=== PATIENT | female | born 1940 | race Asian ===

== ENCOUNTER 2016-12-10 15:37 | Emergency (ER) | payer OTHER ==
[~2016-12-10 15:37] MED LIST: CINNAMON500 MG; DULERA1 AR2; KCL20L PO; LANTUS SOLOS100 U/M1; LEVOFLOXACIN500 M1; LOPERAMIDE1 MG/5 ML; METFORMIN ER500 M1; MEV20; NOR10T; NOVI; PHENAZOPYRIDIN200 M3; PRO30; PYR100I; VERAMYST27.5 MCG/1; [UNRECOGNIZED DRUG - OTHER]
[2016-12-10 16:47] LABS: PLATELET COUNT 307 x10^3mcL (130-400)
[2016-12-10 16:49] LABS: RED CELL DISTRIBUTION WIDTH 14.7 % (11.5-14.5)
[2016-12-10 16:57] LABS: CALCIUM 8.8 mg/dL (8.5-10.1); CARBON DIOXIDE 28.3 mmol/L (21-32); CHLORIDE SERUM 94 mmol/L (98-107); CREATININE SERUM 0.8 mg/dL (0.6-1.0); GLUCOSE SERUM 161 mg/dL (74-106); POTASSIUM SERUM 3.3 mmol/L (3.5-5.1); SODIUM SERUM 133 mmol/L (136-145)
[2016-12-10 17:26] LABS: ALBUMIN 3.5 g/dL (3.4-5.0); ALKALINE PHOSPHATASE 51 U/L (46-116); ALT/SGPT 17 U/L (14-59); AMYLASE 76 U/L (25-115); AST/SGOT 10 U/L (15-37); BILIRUBIN TOTAL 0.26 mg/dL (0.20-1.00); LIPASE 175 IU/L (73-393); T4(THYROXINE) 9.5 ug/dL (4.7-13.3); TOTAL PROTEIN, SERUM 7.2 g/dL (6.4-8.2)
[2016-12-10 17:27] LABS: BAND NEUTROPHIL 2 % (0-10); BASOPHIL 0 % (0-2); MONOCYTE 8 % (0-7); PLATELET MORPHOLOGY PLATELETS NORMAL; SEGMENTED NEUTROPHILS 28 % (37-75); rbc morphology (normal/abnorm) NORMAL (NORMAL)
[2016-12-10 17:32] LABS: CHOLESTEROL 255 mg/dL (<200); HDL CHOLESTEROL 66 mg/dL (40-60)
[2016-12-10 18:42] VITALS: BP 130/51
== END 2016-12-10 18:42 | disposition home or self-care (01) ==
LOC: ED 15:37
PROVIDERS: Emergency Medicine
DX: J44.9 Chronic obstructive pulmonary disease, unspecified (principal); E87.8 Other disorders of electrolyte and fluid balance, not elsewhere classified; E11.9 Type 2 diabetes mellitus without complications; I10 Essential (primary) hypertension; E78.00 Pure hypercholesterolemia, unspecified
CPT/HCPCS: 36600; 82962; 83880; 94150; J2930; J7613; J7644

== ENCOUNTER 2017-03-02 15:32 | Inpatient (IN) | payer OTHER ==
[~2017-03-02] VITALS: Ht 152.4 cm; Wt 58.6 kg
[2017-03-02 16:26] LABS: CALCIUM 8.9 mg/dL (8.5-10.1); CARBON DIOXIDE 25.3 mmol/L (21-32); CHLORIDE SERUM 88 mmol/L (98-107); CREATININE SERUM 1.3 mg/dL (0.6-1.0); GLUCOSE SERUM 379 mg/dL (74-106); POTASSIUM SERUM 3.4 mmol/L (3.5-5.1); SODIUM SERUM 125 mmol/L (136-145)
[2017-03-02 16:27] LABS: BASOPHIL % 0.3 % (0-2); PLATELET COUNT 338 x10^3mcL (130-400); RED CELL DISTRIBUTION WIDTH 13.7 % (11.5-14.5)
[2017-03-02 16:38] LABS: ALBUMIN 3.6 g/dL (3.4-5.0); ALKALINE PHOSPHATASE 56 U/L (46-116); ALT/SGPT 20 U/L (14-59); AMYLASE 50 U/L (25-115); AST/SGOT 13 U/L (15-37); BILIRUBIN TOTAL 0.37 mg/dL (0.20-1.00); LIPASE 85 IU/L (73-393); T4(THYROXINE) 10.8 ug/dL (4.7-13.3); TOTAL PROTEIN, SERUM 7.7 g/dL (6.4-8.2)
[2017-03-02 16:39] LABS: CHOLESTEROL 255 mg/dL (<200); HDL CHOLESTEROL 66 mg/dL (40-60)
[2017-03-02 17:14] LABS: CK-MB < 0.5 ng/mL (0-3.6); CREATINE KINASE 47 U/L (26-192)
[2017-03-02] MEDS ORDERED: PREDNISONE1 MG PO (17:26)
[2017-03-02] MEDS ORDERED: VERAMYST27.5 MCG/1 (17:29)
[2017-03-02] MEDS ORDERED: LANTUS SOLOS100 U/M1 SQ (17:30)
[2017-03-02] MEDS ORDERED: LOVASTATIN40 MG PO (17:30)
[2017-03-02] MEDS ORDERED: METFORMIN HCL850 MG PO (17:30)
[2017-03-02] MEDS ORDERED: NOVI SQ (17:30)
[2017-03-02] MEDS ORDERED: NIFEDICAL XL30 MG PO (17:31)
[2017-03-02] MEDS ORDERED: L-THYROXINE (17:32)
[2017-03-02] MEDS ORDERED: DULERA1 AR3 INH (17:32)
[2017-03-02] MEDS ORDERED: MASON NATURAL1000 IU (17:33)
[2017-03-02] MEDS ORDERED: APAP/HYDROCODON1 T11 PO (17:33)
[2017-03-02] MEDS ORDERED: VITAMIN E400 UNI2 PO (17:33)
[2017-03-02] MEDS ORDERED: THE MEDICINE S300 MG PO (17:34)
[2017-03-02] MEDS ORDERED: NATURAL VITAM1000 MG PO (17:34)
[2017-03-02] MEDS ORDERED: PYR50 PO (17:34)
[2017-03-02] MEDS ORDERED: AZITHROMYCIN250 M1 PO (17:34)
[2017-03-02 17:55] LABS: microscopic required? NO
[2017-03-02 18:01] LABS: UA SPECIFIC GRAVITY <=1.005 (1.005-1.035); urine erythrocyte NEGATIVE (NEGATIVE)
[2017-03-02 18:13] VITALS: BP 147/87
[2017-03-02] MEDS ORDERED: IBUPROFEN200 MG PO (18:15)
[2017-03-02 19:15] VITALS: BP 170/69
[2017-03-02 20:00] VITALS: BP 150/57
[2017-03-02 21:49] VITALS: BP 150/57
[2017-03-03 02:25] VITALS: BP 155/71
[2017-03-03 05:38] VITALS: BP 144/60
[2017-03-03 07:03] LABS: CALCIUM 8.8 mg/dL (8.5-10.1); CARBON DIOXIDE 24.5 mmol/L (21-32); CHLORIDE SERUM 99 mmol/L (98-107); CREATININE SERUM 0.8 mg/dL (0.6-1.0); GLUCOSE SERUM 184 mg/dL (74-106); POTASSIUM SERUM 3.2 mmol/L (3.5-5.1); SODIUM SERUM 137 mmol/L (136-145)
[2017-03-03 07:04] LABS: BASOPHIL % 0.2 % (0-2); PLATELET COUNT 309 x10^3mcL (130-400); RED CELL DISTRIBUTION WIDTH 13.9 % (11.5-14.5)
[2017-03-03 09:27] VITALS: BP 112/62; BP 146/56
[2017-03-03 13:21] VITALS: BP 145/57
[2017-03-03 16:47] VITALS: BP 113/35
[2017-03-03 22:01] VITALS: BP 130/40
[2017-03-04 05:16] VITALS: BP 134/59
[2017-03-04 06:59] LABS: BASOPHIL % 0.2 % (0-2); PLATELET COUNT 308 x10^3mcL (130-400); RED CELL DISTRIBUTION WIDTH 14.2 % (11.5-14.5)
[2017-03-04 07:15] LABS: CALCIUM 8.7 mg/dL (8.5-10.1); CARBON DIOXIDE 26.5 mmol/L (21-32); CHLORIDE SERUM 100 mmol/L (98-107); CREATININE SERUM 0.8 mg/dL (0.6-1.0); GLUCOSE SERUM 226 mg/dL (74-106); MAGNESIUM 1.6 mg/dL (1.8-2.4); POTASSIUM SERUM 3.8 mmol/L (3.5-5.1); SODIUM SERUM 135 mmol/L (136-145)
[2017-03-04 10:25] VITALS: BP 142/53
[2017-03-04 11:54] VITALS: BP 142/53
[2017-03-04] MEDS ORDERED: PREDNISONE1 MG PO (12:04)
== END 2017-03-04 13:00 | disposition home or self-care (01) | DRG 190 ==
LOC: ED 15:32 → DU 17:16
PROVIDERS: Emergency Medicine; ADMIT Family Medicine
DX: J44.1 Chronic obstructive pulmonary disease with (acute) exacerbation (principal); N17.0 Acute kidney failure with tubular necrosis; J96.00 Acute respiratory failure, unspecified whether with hypoxia or hypercapnia; E87.1 Hypo-osmolality and hyponatremia; D68.69 Other thrombophilia; E87.6 Hypokalemia; E11.51 Type 2 diabetes mellitus with diabetic peripheral angiopathy without gangrene; E11.65 Type 2 diabetes mellitus with hyperglycemia; E11.42 Type 2 diabetes mellitus with diabetic polyneuropathy; E03.9 Hypothyroidism, unspecified; E86.0 Dehydration; H40.9 Unspecified glaucoma; E78.5 Hyperlipidemia, unspecified; D72.829 Elevated white blood cell count, unspecified; T38.0X5A Adverse effect of glucocorticoids and synthetic analogues, initial encounter; Z68.25 Body mass index [BMI] 25.0-25.9, adult; Z79.4 Long term (current) use of insulin; Z79.84 Long term (current) use of oral hypoglycemic drugs
CPT/HCPCS: 36600; 82962; 83880; 94150; J1815; J1885; J1956; J2920; J2930; J3475; J7030; J7512; J7613; Q0092

== ENCOUNTER 2018-09-01 20:56 | Inpatient (IN) | payer OTHER ==
[~2018-09-01] VITALS: Ht 152.4 cm; Wt 68.7 kg
[~2018-09-01 20:56] MED LIST changes: +APAP/HYDROCODON1 T11 PO; +AZITHROMYCIN250 M1 PO; +DULERA1 AR3 INH; +IBUPROFEN200 MG PO; +L-THYROXINE; +LANTUS SOLOS100 U/M1 SQ; +LOVASTATIN40 MG PO; +MASON NATURAL1000 IU; -METFORMIN ER500 M1; +METFORMIN HCL850 MG PO; +NATURAL VITAM1000 MG PO; +NIFEDICAL XL30 MG PO; +NOVI SQ; +PREDNISONE1 MG PO; +PYR50 PO; +THE MEDICINE S300 MG PO; +VITAMIN E400 UNI2 PO
[2018-09-01 21:08] VITALS: Ht 152.4 cm; Wt 68.7 kg
--- NOTE | 2018-09-01 21:28 | NUR ---
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 PT GIVEN BREATHING TX X1 EN ROUTE WITH IMPROVEMENT. PT ABLE TO SPEAK CLEARLY. STS NO PAIN AT THIS TIME. PT AAO4, NO DISTRESS. MSE BY DR QUICK.
[2018-09-01 21:37] LABS: BASOPHIL % 1.4 % (0-2); PLATELET COUNT 296 x10^3mcL (130-400)
[2018-09-01 21:45] LABS: CHLORIDE SERUM 99 mmol/L (98-107); CREATININE SERUM 0.9 mg/dL (0.6-1.0); GLUCOSE SERUM 173 mg/dL (74-106); POTASSIUM SERUM 3.3 mmol/L (3.5-5.1); SODIUM SERUM 136 mmol/L (136-145)
[2018-09-01 21:50] LABS: ALBUMIN 3.7 g/dL (3.4-5.0); ALKALINE PHOSPHATASE 30 U/L (46-116); ALT/SGPT 24 U/L (14-59); AST/SGOT 19 U/L (15-37); BILIRUBIN TOTAL 0.21 mg/dL (0.20-1.00); TOTAL PROTEIN, SERUM 7.2 g/dL (6.4-8.2)
[2018-09-01 21:53] LABS: microscopic required? NO
[2018-09-01 22:02] LABS: CK-MB 0.7 ng/mL (0-3.6)
[2018-09-01 22:06] LABS: urine erythrocyte NEGATIVE (NEGATIVE)
--- NOTE | 2018-09-01 22:22 | NUR ---
PT IN [place] IN POSITION OF COMFORT, RESP E/U, NO DISTRESS.
--- NOTE | 2018-09-01 23:02 | NUR ---
MD AT BEDSIDE TO SPEAK WITH PT ABOUT POC. PT AAO4, RESP E/U, STS NO PAIN AT THIS TIME.
--- NOTE | 2018-09-01 23:22 | NUR ---
REPORT GIVEN TO LUIS F YOO TO ASSUME CARE.
[2018-09-02] VITALS (7 sets, daily range): BP systolic 107–146; BP diastolic 39–57
[2018-09-02 00:10] LABS: CHOLESTEROL 192 mg/dL (<200); MAGNESIUM 1.5 mg/dL (1.8-2.4); PHOSPHOROUS 3.3 mg/dL (2.5-4.9)
[2018-09-02 00:15] LABS: CHOLESTEROL/HDL RATIO 2.2; HDL CHOLESTEROL 89 mg/dL (40-60); TRIGLYCERIDES 429 mg/dL (<150)
[2018-09-02 00:26] LABS: FREE T4 0.92 ng/dL (0.76-1.46); FREE THYROXINE INDEX 3.1 ug/dL (1.4-4.5); T4(THYROXINE) 9.1 ug/dL (4.7-13.3)
--- NOTE | 2018-09-02 00:32 | NUR ---
RECEIVED PT FROM ED VIA PITER. ORIENTED PT TO ROOM AND SURROUNDINGS. IV NOTED TO LAC PATENT AND INTACT. TELE 24 PLACED ON PT READING NSR. INSTRUCTED PT ON THE USE OF CALL LIGHT FOR ASSISTANCE. ENDORSED PT TO PRIMARY NURSE NAILA
[2018-09-02 00:50] LABS: T3 TOTAL 1.25 ng/mL
--- NOTE | 2018-09-02 01:13 | NUR ---
RECEIVED PT FROM ED, ACCOMPANIED BY ER NURSE AND PT,S SON. KEPT COMFORTABLE IN BED. A/O X4. ABLE TO VERBALIZE NEEDS. ADMITTED WITH COMPLAINTS OF SOB. PT ON ROOM AIR, SAT. 95% LUNG SOUNDS WITH EXP. WHEEZES, DENIES SOB AT THIS TIME. RESP. EVEN AND UNLABORED. NO ACUTE DISTRESS NOTED. AFEBRILE AND VITAL SIGNS STABLE. PLACED ON TELE #24, SR ON THE MONITOR. DENIES CHEST PAIN OR PRESSURE. IVF,NS AND LEVAQUIN, STARTED IN ER, STILL INFUSING. IV SITE TO LAC.ABD. SOFT, NON DISTENDED, BS ACTIVE. NO N/V NOTED. SKIN WARM AND DRY TO TOUCH.BRUISED AREA TO RT HAND NOTED. PICTURE TAKEN AND DOCUMENTED. ORIENTED TO ROOM AND SURROUNDINGS. BED IN LOW POSITION. CALL LIGHT WITHIN REACH. WILL CONTINUE TO MONITOR.
[2018-09-02] MEDS ORDERED: LEVOTHYROXINE0.05 M2 PO (01:52)
[2018-09-02] MEDS ORDERED: CHLORTHALIDONE50 MG PO (01:52)
[2018-09-02] MEDS ORDERED: NOR10T PO (01:52)
[2018-09-02] MEDS ORDERED: PRINIVIL10 MG PO (01:53)
--- NOTE | 2018-09-02 03:00 | NUR ---
LACTIC ACID RESULT 5.3, DR ELLIOTT MADE AWARE. WILL CONTINUE TO MONITOR.
--- NOTE | 2018-09-02 03:32 | NUR ---
COMPLAINED OF PAIN TO BLE, 11/16, MEDICATED WITH NORCO PO ORDERED. WILL CONTINUE TO MONITOR.
--- NOTE | 2018-09-02 04:17 | NUR ---
EYES CLOSED, APPEARS ASLEEP, EASILY AROUSABLE. NO DISTRESS NOTED. WILL CONTINUE TO MONTOR.
--- NOTE | 2018-09-02 06:07 | NUR ---
DUE MEDS GIVEN ORDERED, KRIS. WELL. DUE MEDS GIVEN ORDERED, KRIS . WELL. AMBULATES WITH ASSIST. VOIDING FREELY. AFEBRILE AND VITAL SIGNS STABLE. RESP. EVEN AND UNLABORED. DENIES SOB. NO ACUTE DISTRESS NOTED. WILL CONTINUE TO MONITOR.
[2018-09-02 06:47] LABS: CALCIUM 8.2 mg/dL (8.5-10.1); CARBON DIOXIDE 18.4 mmol/L (21-32); CHLORIDE SERUM 100 mmol/L (98-107); CREATININE SERUM 1.3 mg/dL (0.6-1.0); GLUCOSE SERUM 309 mg/dL (74-106); MAGNESIUM 1.3 mg/dL (1.8-2.4); POTASSIUM SERUM 4.9 mmol/L (3.5-5.1); SODIUM SERUM 137 mmol/L (136-145)
[2018-09-02 06:54] LABS: PLATELET COUNT 271 x10^3mcL (130-400)
[2018-09-02 07:06] LABS: BASOPHIL % 0 % (0-2); RED CELL DISTRIBUTION WIDTH 15.1 % (11.5-14.5)
--- NOTE | 2018-09-02 08:00 | NUR ---
RC'D PT RESTING IN BED WITH NO APPARENT SIGNS OF DISTRESS. A/A/O/X4, SPEECH CLEAR AND APPRORPIATE. DENIES DAMON/DIZZINES. ON TELE, DENIES CHEST PAIN/PRESSURE. PALP PULSES. RESPIRATIONS EQUAL AND UNLABORED. LUNGS CTA AT THSI TIME. ON RA, DENIES SOB. ABDOMEN SOFT AND NONTENDER. ACTIVE BS. DENIES N/V. VOIDS FREELY. AMBULATORY WITH ASSIST. DRESSING TO RIGHT HAND, CDI. PT DENIES PAIN AT THIS TIME. IV PATENT AND INTACT. BED IN LOW PSOITION. CALL LIGHT IN REACH. WILL CONTINUE TO MONITOR
--- NOTE | 2018-09-02 08:48 | NUR ---
AM MEDICATIONS GIVEN. PT TOLERATED WELL. RESPIRATIONS EQUAL AND UNLABORED. ON ,RA DENIES SOB. PT DENIES PAIN AT THIS TIME. BED IN LOW POSITION. CALL LIGHT IN REACH. WILL CONTINUE TO MNONITR
--- NOTE | 2018-09-02 17:18 | NUR ---
PT RESTING IN BED WITH NO APPARENT SIGNS OF DISTRESS. DENIES CHEST PAIN/PRESSURE. RESPIRATIONS EQUAL AND UNLABORED. ON RA, DENIES SOB. PT AMBULATORY WITH ASSIST. NO ACUTE SKIN CHANGES NOTED. PT DENIES PAIN AT THIS TIME. IV PATENT AND INTACT. BED IN LOW POSIOTION. CALL LIGHT IN REACH. WILL ENDORSE TO GARMENT CUTTER RN
--- NOTE | 2018-09-02 19:54 | NUR ---
RECEIVED AMBULATING TO THE TOILET FOR [place] PERSONAL NEEDS. SKIN WARM AND DRT TO TOUCHM WITH INTERMTTENT CONFUSION, LUNG SOUNDS UPON AUSCULTATION. DENIES ANY CHEST PAIN/DISCOMFIORT. PLACED CALL LIGHT WIHTI , HEPARIN IR STAT
--- NOTE | 2018-09-02 22:56 | NUR ---
C/O MODERATE PAIN AT THE BLE. ON SCALE 6/10. NORCO 10/325MG PO PRN MEDICATION. ORAL FLUIDS TOLERATED. WELL. CALL LIGHT WITHIN REACH.
--- NOTE | 2018-09-03 00:01 | NUR ---
EYES CLOSED. NO FACIAL GRIMACING NOTED. RESPIRATION EVEN AND UNLABORED. PAIN LEVEL 0/10, APPARENTLT PT ASLEEP SOUNDLY. BED IN LOWEST POSITION.
[2018-09-03 05:24] VITALS: BP 111/47
[2018-09-03 06:40] LABS: PLATELET COUNT 247 x10^3mcL (130-400)
[2018-09-03 06:45] LABS: CALCIUM 8.3 mg/dL (8.5-10.1); CARBON DIOXIDE 22.5 mmol/L (21-32); CHLORIDE SERUM 97 mmol/L (98-107); GLUCOSE SERUM 202 mg/dL (74-106); POTASSIUM SERUM 3.8 mmol/L (3.5-5.1); SODIUM SERUM 133 mmol/L (136-145)
--- NOTE | 2018-09-03 06:48 | NUR ---
BLOOD SUGAR TAKEN 199MG/DL, 3UNITS HRI GIVEN SQ. ALL DUE MEDICATIONS GIVEN TOLERATING WELL. NO S/S OF GLYCEMIC REACTION. ALL NEEDS ATTENDED. KEPT CLEAN AND DRY.
--- NOTE | 2018-09-03 07:55 | NUR ---
AT 0715 - RECEIVED PATIENT FROM NIGHT NURSE. AWAKE, ALERT AND ORIENTED. RESPIRATIONS REGULAR. ON ROOM AIR. NO SOB NOTED. IV SALINE LOCKED.
[2018-09-03 09:01] VITALS: BP 112/43
--- NOTE | 2018-09-03 10:25 | NUR ---
SEEN BY DR REES. PLAN TO DC HOME TODAY. PATIENT VERBALZIED AGREEMENT.
--- NOTE | 2018-09-03 10:33 | NUR ---
AT 1027 - RECEIVED CALL FROM LAB WITH LACTIC ACID OF 3.9. REPORTED TO DR REES AND DR CASTANEDA. NO ADDITIONAL TREATMENT REQUIRED THIS IS A DOWNWARD TREND.
[2018-09-03 12:02] LABS: RED CELL DISTRIBUTION WIDTH 15.4 % (11.5-14.5)
[2018-09-03 12:24] VITALS: BP 112/43
[2018-09-03] MEDS ORDERED: METFORMIN ER500 M1 PO (12:24)
--- NOTE | 2018-09-03 12:59 | NUR ---
AT 1204 - RECEIVED CALL FROM LAB WITH ELEVATED WBC PER SEPSIS PROTOCOL. SPOKE WITH DR CASTANEDA. SHE WILL CALL LAB. PATIENT MAY STIL BE DISCHARGED HOME. AT 1230 - PATIENT DOES NOT WANT TO EAT LUNCH BUT WANTS TO BE DISCHARGED HOME NOW. AT 1240 - PRINTED DISCHARGE INSTRUCTIONS GIVEN AND EXPLAINED TO PATIENT. IV CATHETER REMOVED INTACT. AT 1255 - DISCHARGED HOME WITH . TAKEN TO CAR IN WHEELCHAIR BY JENNA.
[2018-09-03 14:42] LABS: ATYPICAL LYMPH 1 %; BAND NEUTROPHIL 0 % (0-10); BASOPHIL 0 % (0-2); MONOCYTE 2 % (0-7); SEGMENTED NEUTROPHILS 87 % (37-75); rbc morphology (normal/abnorm) ABNORMAL (NORMAL)
[2018-09-03 14:43] LABS: PLATELET MORPHOLOGY PLATELETS NORMAL
== END 2018-09-03 12:57 | disposition home or self-care (01) | DRG 202 ==
LOC: ED 20:56 → DU 23:07 → MU 09-02 17:42
PROVIDERS: Emergency Medicine; ADMIT General Practice
DX: J45.901 Unspecified asthma with (acute) exacerbation (principal); E87.2 Acidosis; E11.65 Type 2 diabetes mellitus with hyperglycemia; E78.5 Hyperlipidemia, unspecified; E87.6 Hypokalemia; E83.42 Hypomagnesemia; E03.9 Hypothyroidism, unspecified; H40.9 Unspecified glaucoma; D72.829 Elevated white blood cell count, unspecified; Z68.24 Body mass index [BMI] 24.0-24.9, adult; Z79.52 Long term (current) use of systemic steroids; Z79.84 Long term (current) use of oral hypoglycemic drugs
CPT/HCPCS: 82962; 84439; J1644; J1815; J1956; J2920; J2930; J7030; J7620; J7626; Q0092

== ENCOUNTER 2018-09-19 11:54 | Inpatient (IN) | payer OTHER ==
[~2018-09-19] VITALS: Ht 152.4 cm; Wt 59.4 kg
[~2018-09-19 11:54] MED LIST changes: +CHLORTHALIDONE50 MG PO; +LEVOTHYROXINE0.05 M2 PO; +METFORMIN ER500 M1 PO; +NOR10T PO; +PRINIVIL10 MG PO
[2018-09-19 12:00] VITALS: Ht 152.4 cm; Wt 59.4 kg
--- NOTE | 2018-09-19 12:12 | NUR ---
DR. KIMBLE AT BEDSIDE FOR MSE.
--- NOTE | 2018-09-19 12:15 | NUR ---
PT BROUGHT TO ED BY SON C/O WORSENING SOB X5 DAYS POST COMPLETING CYCLE OF ANTIBIOTICS. PER SON PT WAS DISCHARGED [place] [facility] [place] [facility] AND STARTED ON GLIPIZIDE IN PLACE OF METFORMIN. PT A/O X4, RESPS SLIGHTLY RAPID, WHEEZING NOTED THROUGHOUT LUNG BUSTILLOS, SKIN INTACT, WARM/DRY TO TOUCH. RT CALLED FOR TX.
--- NOTE | 2018-09-19 12:23 | NUR ---
RT AT BEDSIDE ADMINISTERING BREATHING TX.
[2018-09-19 12:30] LABS: BASOPHIL % 0.4 % (0-2); PLATELET COUNT 261 x10^3mcL (130-400)
--- NOTE | 2018-09-19 12:31 | NUR ---
PORTABLE CHEST X-RAY IN PROGRESS AT BEDSIDE.
[2018-09-19 12:45] LABS: CALCIUM 9.5 mg/dL (8.5-10.1); CARBON DIOXIDE 24.7 mmol/L (21-32); CHLORIDE SERUM 96 mmol/L (98-107); CREATININE SERUM 1.2 mg/dL (0.6-1.0); GLUCOSE SERUM 415 mg/dL (74-106); POTASSIUM SERUM 3.6 mmol/L (3.5-5.1); SODIUM SERUM 135 mmol/L (136-145)
[2018-09-19 12:50] LABS: ALBUMIN 3.5 g/dL (3.4-5.0); ALKALINE PHOSPHATASE 40 U/L (46-116); ALT/SGPT 22 U/L (14-59); BILIRUBIN TOTAL 0.4 mg/dL (0.20-1.00); TOTAL PROTEIN, SERUM 7.2 g/dL (6.4-8.2)
[2018-09-19 13:00] LABS: AST/SGOT 6 U/L (15-37)
--- NOTE | 2018-09-19 13:16 | NUR ---
PT SITTING UP IN ED BOOM A/O X4, RESPS EVEN AND UNLABORED, ABLE TO SPEAK IN COMLETE SENTENCES, REPORTS FEELING BETTER SINCE ARRIVAL TO ED, NO S/S OF DISTRESS NOTED. SON AT BEDSIDE.
[2018-09-19 13:34] LABS: RED CELL DISTRIBUTION WIDTH 15.1 % (11.5-14.5)
--- NOTE | 2018-09-19 13:43 | NUR ---
REPORT CALLED TO MARLENE KERNS.
[2018-09-19] MEDS ORDERED: CLARITIN LIQUI-10 MG PO (13:46)
[2018-09-19] MEDS ORDERED: SPIRIVA18 MC1 INH (13:46)
[2018-09-19] MEDS ORDERED: GLIPIZIDE2.5 M1 PO (13:46)
[2018-09-19] MEDS ORDERED: PRO2 PO (13:46)
[2018-09-19 14:12] VITALS: BP 144/48
--- NOTE | 2018-09-19 14:15 | NUR ---
RECEIVED PT FROM ED VIA [employer]. ORIENTED PT TO ROOM AND SURROUNDINGS. IV NOTED TO LH PATENT AND INTACT. TELE 32 PLACED ON PT READING NSR. INSTRUCTED PT ON THE USE OF CALL LIGHT FOR ASSISTANCE. WILL CONTINUE TO MONITOR
--- NOTE | 2018-09-19 16:17 | NUR ---
PATIENT WAS MEDICATED WITH NORCO FOR C/O 9/10 PAIN TO LT ARM BY SURU RN, RESUME CARE; PATIENT RESTING IN BED CALM, WITH SON AT BEDSIDE. QUESTIONS ADDRESSED. CALL LIGHT WITHIN REACH.
--- NOTE | 2018-09-19 17:21 | NUR ---
PATIENT REPORT PAIN TO LT ARM IS BETTER AFTER MEDICATED WITH NORCO, 09/16. 21 UNITS REGULAR INSULIN SQ INJECTED TO LT ARM PER PATIENT REQUESTED, BS 482. NEEDS MET. CALL LIGHT WITHIN REACH. IV TO LH REMOVED PER PATIENT REQUEST C/O PAIN TO SITE. NO ERYTHEMA OR SWELLING NOTED. GAUZES APPLIED TO SITE. CONT TO MONITOR.
[2018-09-19 17:35] VITALS: BP 144/48
[2018-09-19 18:27] VITALS: BP 128/47; BP 168/77
--- NOTE | 2018-09-19 19:08 | NUR ---
NEW IV SITE TO #22G WITH GOOD BLOOD RETURN AND FLUSH WELL; SECURED. IVF STARTED AT 50 ML/HR. CARE ENDORSE TO ON-COMING NURSE.
[2018-09-19 19:53] VITALS: BP 122/59
--- NOTE | 2018-09-19 19:57 | NUR ---
PATIENT RECEIVED IN BED AWAKE,ALERT AND ORIENTED X4,SPEECH CLEAR. NO RESP. DISTRESS, FOUND ON RA SAT 97%, STATED MILD SOB ON EXERTION, BS EXPIRATORY WHEEZING UPPER LOBES AND CLEAR DIMINISHED BASES.DENIES CHEST PAINS, VG=[id number], TELE#32 SR. IV SITE NO SIGN OF INFILTRATION. AMBULATORY WITH STEADY GAIT, ABLE TO PARTICIPATED IN ADL'S WITH MIN ASSIST. 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 PATIENT CONCERN AND QUESTIONS ADDRESSED AND ANSWERED. INFORMED ABOUT POC THIS SHIFT. WILL CONTINUE TO MONITOR.
--- NOTE | 2018-09-19 21:42 | NUR ---
SCHEDULED MEDS ADMINISTERED THIS TIME, PATIENT IN SITTING POSITION, PATIENT WA INFORMED ABOUT EACH MEDS ACTIONS AND PURPOSE PRIOR. TOOK PILLS WELL. PATIENT ALSO COMPLAINED O GENERALIZED BODY PAIN, MEDICATED WITH NORCO. PATIENT GIVEN SNACK.
--- NOTE | 2018-09-19 22:34 | NUR ---
CHECKED EFFECTIVENESS OF PAIN MEDS ADMINISTERED EARLIER, PATIENT STATED PAIN AT 2/10 BETTER.
--- NOTE | 2018-09-20 01:00 | NUR ---
PATIENT RESTING QUIETLY AND COMFORTABLY THIS TIME NO RESP. DISTRESS, REMAINED ON RA TOLERATING WELL. NSR ON THE MONITOR. WILL CONTINUE TO MONITOR.
[2018-09-20 06:06] VITALS: BP 124/51
--- NOTE | 2018-09-20 06:35 | NUR ---
PATIENT CLAIMED HAD SLEPT WELL AND RESTED GOOD DURING THE SHIFT. AMBULATORY WITH STEADY GAIT, VOIDED WITHOUT DIFF. NO RESP. DISTRESS ENCOUNTERED, TOLERATED BEING ON ROOM AIR.RECEIVED RELIEF FROM NORCO GIVEN EARLIER FOR GENERALIZED BODY PAIN. SAFETY MAINTAINED. WILL ENDORSE CONTINUITY OF CARE TO INCOMING NURSE.
[2018-09-20 06:40] LABS: BASOPHIL % 0.2 % (0-2); PLATELET COUNT 248 x10^3mcL (130-400)
[2018-09-20 06:42] LABS: RED CELL DISTRIBUTION WIDTH 15.5 % (11.5-14.5)
[2018-09-20 06:48] LABS: CALCIUM 9.2 mg/dL (8.5-10.1); CARBON DIOXIDE 25.5 mmol/L (21-32); CHLORIDE SERUM 97 mmol/L (98-107); GLUCOSE SERUM 291 mg/dL (74-106); POTASSIUM SERUM 3.4 mmol/L (3.5-5.1); SODIUM SERUM 135 mmol/L (136-145)
--- NOTE | 2018-09-20 06:51 | NUR ---
RECEIVED A CALL FROM LAB WITH WBC OF 15.1 WILL RELAY RESULT TO CHARGE NURSE NANCY-LUIS F AND INCOMING NURSE.
--- NOTE | 2018-09-20 07:15 | NUR ---
RECEIVED PATIENT AWAKE/ALERT IN BED, STATED FEEL MUCH BETTER TODAY, DENIES SOB. DENIES PAIN. TELE #32 NOTED. IV TO RH INTACT AND INFUSING WELL. NO ERYTHEMA OR SWELLING NOTED. TRACK AND FIELD COACH NELL SEEN PATIENT AND DISCUSS POC WITH PATIENT, PER TRACK AND FIELD COACH WILL KEEP PATIENT ONE MORE DAY. CALL LIGHT WITHIN REACH.
--- NOTE | 2018-09-20 07:21 | NUR ---
BEDSIDE HANDS OFF REPORT AND INTRODUCTION PERFORMED WITH INCOMING NURSE IVANA-LUIS F.
[2018-09-20 09:08] VITALS: BP 110/46
--- NOTE | 2018-09-20 12:19 | NUR ---
PATIENT RESTING IN BED NO COMPLAIN, DRY COUGH NOTED. ADMINISTERED 18 UNITS REGULAR SQ FOR BS 403, NEEDS ATTENDED. CALL LIGHT WITHIN REACH.
[2018-09-20 12:20] VITALS: BP 104/51
--- NOTE | 2018-09-20 13:27 | NUR ---
PATIENT RESTING IN BED NO C/O PAIN AT THIS TIME, SOLUMEDROL IVP ADMINISTERED TO RH IV PATENT, NO ERYTHEMA OR LEAKING NOTED. RT AT BEDSIDE GIVING PATIENT BREATHING TX. PROVIDE NEW BLANKET PER PATIENT ACCIDENTLY SPILL JUICE ON IT. CALL LIGHT WITHIN REACH.
[2018-09-20 15:30] LABS: CALCIUM 8.8 mg/dL (8.5-10.1); CARBON DIOXIDE 21.1 mmol/L (21-32); CHLORIDE SERUM 98 mmol/L (98-107); CREATININE SERUM 1.3 mg/dL (0.6-1.0); GLUCOSE SERUM 399 mg/dL (74-106); POTASSIUM SERUM 3.2 mmol/L (3.5-5.1); SODIUM SERUM 134 mmol/L (136-145)
[2018-09-20 15:33] LABS: BASOPHIL % 0.1 % (0-2); PLATELET COUNT 237 x10^3mcL (130-400)
[2018-09-20 16:34] VITALS: BP 126/40
--- NOTE | 2018-09-20 17:22 | NUR ---
PATIENT BACK TO ROOM FROM WALKING IN HALLWAY, TOLERATED WELL NO C/O SOB OR WHEEZES. ADMINISTERED REGULAR INSULIN 18 UNITS SQ FOR BS 413 TO RT ABDOMEN. NEEDS MET. CONT TO MONITOR.
--- NOTE | 2018-09-20 18:09 | NUR ---
PATIENT STILL EATING HER DINNER, REPORT DON'T NEED ANYTHING AT THIS TIME. CALL LIGHT WITHIN REACH.
--- NOTE | 2018-09-20 19:30 | NUR ---
PT IN ROOM 209 BED B. PT IS A/O X4, SPEECH IS CLEAR AND FOLLOWS COMMANDS. CHEST RISE AND FALL EQUAL AND UNLABORED. VS STABLE. NO SIGNS OR COMPLAINT OF ACUTE DISTRESSED. CALL LIGHT WITHIN REACH AND BED IN LOWEST POSTION.
--- NOTE | 2018-09-20 19:32 | NUR ---
RECEIVED REPORT FROM LUIS F HEATH. ALL QUESTIONS AND CONCERS ADDRESSED.
[2018-09-20 21:03] VITALS: BP 123/45
--- NOTE | 2018-09-21 00:15 | NUR ---
PT RESTING IN THE TIME IN SUPINE POSITION. NO SIGNS OR COMPLAINTS OF ACUTE DISTRESS.
[2018-09-21 05:31] VITALS: BP 137/55
[2018-09-21 07:10] LABS: PLATELET COUNT 236 x10^3mcL (130-400)
[2018-09-21 07:15] LABS: CALCIUM 8.5 mg/dL (8.5-10.1); CARBON DIOXIDE 24.1 mmol/L (21-32); CHLORIDE SERUM 98 mmol/L (98-107); CREATININE SERUM 0.9 mg/dL (0.6-1.0); GLUCOSE SERUM 317 mg/dL (74-106); POTASSIUM SERUM 3.3 mmol/L (3.5-5.1); SODIUM SERUM 135 mmol/L (136-145)
[2018-09-21 07:26] LABS: BASOPHIL % 0 % (0-2)
--- NOTE | 2018-09-21 07:30 | NUR ---
PATIENT RESTING IN BED. PATIENT DENIES PAIN AT THIS TIME. NO ACUTE DISTRESS NOTED, PATIENT ON ROOM AIR. NO WEAKNESS NOTED. IV INFUSING TO RIGHT HAND AT 50ML/HR, IV SITE CDI, NO S/S OF INFILTRATION. CALL LIGHT WITHIN REACH, BED IN LOW POSITION, WILL CONTINUE TO MONITOR PATIENT.
[2018-09-21 08:34] VITALS: BP 148/45
[2018-09-21] MEDS ORDERED: MEDROL DOSEPAK4 MG PO (10:34)
[2018-09-21 13:03] VITALS: BP 148/45
--- NOTE | 2018-09-21 13:35 | NUR ---
PATIENT WAS DISCHARGE HOME. PATIENT WAS TAKEN DOWN BY SOCIAL PROBLEMS SPECIALIST VIA WHEELCHAIR. TELE MONITOR REMOVED. IV TO RIGHT HAND REMOVED, CATH INTACT. ARMBANDS REMOVED. PATIENT DENIES PAIN. PATIENT RECEIVED COPY OF D/C INSTRUCTIONS AND D/C PRESCRIPTIONS. PATIENT UNDERSTANDS AND AGREES WITH D/C PLAN AND INSTRUCTINS, INCLUDING MEDICATIONS AND FOLLOW UP CARE. ALL QUESTIONS AND CONCERNS ADRESSED. PATIENT TOOK HOME PERSONAL BELONGINGS.
== END 2018-09-21 13:32 | disposition home or self-care (01) | DRG 203 ==
LOC: ED 11:54 → DU 13:10
PROVIDERS: Emergency Medicine; Internal Medicine; ADMIT Family Medicine
DX: J45.901 Unspecified asthma with (acute) exacerbation (principal); R06.03 Acute respiratory distress; E11.65 Type 2 diabetes mellitus with hyperglycemia; I45.81 Long QT syndrome; E03.9 Hypothyroidism, unspecified; I10 Essential (primary) hypertension; E78.5 Hyperlipidemia, unspecified; Z79.4 Long term (current) use of insulin; Z68.25 Body mass index [BMI] 25.0-25.9, adult; Z79.84 Long term (current) use of oral hypoglycemic drugs
CPT/HCPCS: 82962; 83880; 94150; J2920; J2930; J3475; J7030; J7613; J7620; J7626; J7644; Q0092

== ENCOUNTER 2019-01-05 14:06 | Emergency (ER) | payer OTHER ==
[~2019-01-05] VITALS: Ht 152.4 cm; Wt 62.1 kg
[~2019-01-05 14:06] MED LIST changes: +CLARITIN LIQUI-10 MG PO; +GLIPIZIDE2.5 M1 PO; +MEDROL DOSEPAK4 MG PO; +PRO2 PO; +SPIRIVA18 MC1 INH
[2019-01-05 14:10] VITALS: Ht 152.4 cm; Wt 62.1 kg
[2019-01-05 15:01] LABS: PLATELET COUNT 258 x10^3mcL (130-400); RED CELL DISTRIBUTION WIDTH 14.3 % (11.5-14.5)
[2019-01-05 15:45] LABS: CALCIUM 8.3 mg/dL (8.5-10.1); CARBON DIOXIDE 25.5 mmol/L (21-32); CHLORIDE SERUM 101 mmol/L (98-107); GLUCOSE SERUM 303 mg/dL (74-106); POTASSIUM SERUM 3.2 mmol/L (3.5-5.1); SODIUM SERUM 140 mmol/L (136-145)
[2019-01-05] MEDS ORDERED: LOVASTATIN40 MG PO (15:49)
[2019-01-05 15:50] LABS: ALKALINE PHOSPHATASE 49 U/L (46-116); ALT/SGPT 38 U/L (14-59); AST/SGOT 27 U/L (15-37); BILIRUBIN TOTAL 0.2 mg/dL (0.20-1.00); TOTAL PROTEIN, SERUM 7.6 g/dL (6.4-8.2)
[2019-01-05 15:51] LABS: ALBUMIN 3.3 g/dL (3.4-5.0)
[2019-01-05] MEDS ORDERED: PREDNISONE20 MG PO (15:51)
[2019-01-05] MEDS ORDERED: NOR10T PO (15:52)
[2019-01-05] MEDS ORDERED: POTASSIUM CHLO10 MEQ (15:53)
[2019-01-05] MEDS ORDERED: SPIRIVA18 MC1 PO (15:54)
[2019-01-05] MEDS ORDERED: CLARITIN10 MG PO (15:55)
[2019-01-05] MEDS ORDERED: GLUCOTROL5 MG (15:57)
[2019-01-05] MEDS ORDERED: NOVI (15:58)
[2019-01-05] MEDS ORDERED: LANTI (15:58)
[2019-01-05] MEDS ORDERED: DUPIXENT200 MG/1.1 (15:59)
[2019-01-05] MEDS ORDERED: PROVENTIL0.09 MG/A1 INH (15:59)
[2019-01-05 16:04] LABS: BAND NEUTROPHIL 0 % (0-10); MONOCYTE 4 % (0-7); SEGMENTED NEUTROPHILS 27 % (37-75)
[2019-01-05 16:15] LABS: rbc morphology (normal/abnorm) NORMAL (NORMAL)
[2019-01-05 16:29] VITALS: BP 142/50
== END 2019-01-05 16:29 | disposition left against medical advice (07) ==
LOC: ED 14:06
PROVIDERS: Emergency Medicine
DX: I24.9 Acute ischemic heart disease, unspecified (principal); I10 Essential (primary) hypertension; E11.9 Type 2 diabetes mellitus without complications; E78.00 Pure hypercholesterolemia, unspecified; Z95.2 Presence of prosthetic heart valve; Z98.890 Other specified postprocedural states; Z98.51 Tubal ligation status; Z90.710 Acquired absence of both cervix and uterus; Z88.1 Allergy status to other antibiotic agents; Z88.8 Allergy status to other drugs, medicaments and biological substances; Z88.6 Allergy status to analgesic agent
CPT/HCPCS: 36415; 83880; J7030; Q0092